=== PATIENT | male | born 1995 | race Two or more races ===

== ENCOUNTER → 2016-07-11 06:59 | Day surgery (SDC) | payer OTHER ==
[~2016-07-11 06:59] MED LIST: Atracurium* 10 MG/ML 10 ML VIAL ONE; Buffered Lidocaine 1% SYR 3ML* 3 ML/SYR SYRINGE INTRADERM ONE; Buffered Lidocaine 1% SYR 3ML* 3 ML/SYR SYRINGE ONE; Bupivacaine 0.25% EPI 200,000* 30 ML SDV ONE; Bupivacaine 0.25% SDV* 30 ML ONE; Dexamethasone IV* 4 MG/ML 1 ML (4 MG) IV SLOW PU ONE; Dexamethasone IV* 4 MG/ML 1 ML (4 MG) ONE; DiMENhydriNATE IV* 50 MG/ML VIAL IV PUSH PRN; Famotidine IV* 10 MG/ML 2 ML (20 mg) IV ONE; Famotidine IV* 10 MG/ML 2 ML (20 mg) ONE; Glycopyrrolate IV* 0.2 MG/ML 1 ML VIAL ONE; Ketorolac INJ* 30 MG/ML 1 ML VIAL ONE; Midazolam* 1 MG/ML 5 ML VIAL (5 MG) ONE; Ondansetron INJ* 2 MG/ML VIAL IV PRN; Ondansetron INJ* 2 MG/ML VIAL ONE; Propofol* 10 MG/ML 20 ML BTL IV PUSH ONE; ROPIVACAINE 5 MG/ML 30 ML BTL (0.5%) ONE; ceFAZolin 2 GM PREMIX (*) 2 GM/50 ML BAG IVPB ONE; fentaNYL* 50 MCG/ML 2 ML VIAL (100 MCG VIAL) IV PRN; fentaNYL* 50 MCG/ML 2 ML VIAL (100 MCG VIAL) ONE; oxyCODONE/Acetamin 5/325 MG* TAB PO PRN
[2016-07-11 11:12] VITALS: BP 134/83
--- NOTE | 2016-07-11 23:37 | OP ---
DATE OF OPERATION: 07/11/16 - [facility] DATE OF : [birth year] SURGEON: Ita Villanueva MD REVIVAL CLERK: SHIRLEY Fisher ANESTHESIOLOGIST: Yosef Simon MD ANESTHESIA: General interscalene block. 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 OPERATIVE PROCEDURE: 1. Left shoulder arthroscopy. 2. Extensive glenohumeral debridement including chondroplasty. 3. Removal of loose body x1, greater than 5 mm. 4. Bony Bankart repair. 5. Subpectoral biceps tenodesis. IMPLANTS USED: Four 2.9 mm Bioraptors and one Q-Fix anchor. COMPLICATIONS: None. ESTIMATED BLOOD LOSS: Minimal. INDICATIONS: Sukhjinder Gee is a 20-year-old male who has had a 1-xpsb-ihlshcy of recurrent dislocation of over 10 times dislocating. He had imaging that was consistent with a moderate sized bony Bankart piece that was displaced and healed improperly. He had persistent episodes of instability and had failed conservative management. The risks and benefits of surgery were discussed at length including, but not limited to failure of repair, need for further surgery , risk of arthritis and dislocation, stiffness, persistent pain, loss of motion , wound healing problems, risk of DVT, risk of anesthesia, failure of the hardware. He has elected to proceed with surgery. DESCRIPTION OF PROCEDURE: The patient was greeted in the preoperative area by the attending surgeon. Correct extremity was marked and consent was confirmed. The patient was then brought back to the operating suite, where he was placed in supine position on the operating table. He then underwent interscalene nerve block by the anesthesiologist, which he tolerated without difficulty. The patient was then placed in the right lateral decubitus position. Left arm was suspended with 10 pounds of traction. Unsterilely, he was secured with a PEG board. All bony prominences were padded. The shoulder was examined and he was found to have 3+ anterior glide and a positive sulcus sign. The left shoulder was then prepped and draped in usual sterile fashion, given chlorhexidine soap and alcohol wipe and a final prep with ChloraPrep. After appropriate surgical pause indicating side, site, procedure, and administration of antibiotics, a standard postero-lateral portal was made sharply with an 11 blade, the scope was then introduced to the joint. The joint was examined. There was high-grade injury to the biceps luciano. The superior labrum was torn. The biceps had mild fraying and was torn. The undersurface of the subscapularis was intact with mild irritation. The undersurface of the supraspinatus was intact. There was at least one loose body that was evident. The shoulder was completely dislocated with no excessive traction. Low anterior portal was then made with an 18- gauge for localization and eventually dilated up to an 8 mm cannula. Shaver was brought in to perform a small chondroplasty and remove the loose body. The biceps was taken through range of motion and found to be torn and inflamed and therefore, it was tenotomized. The stump was shaved back. The shoulder was examined. There was a large bony defect. The labrum bony Bankart piece had been subluxed medially and healed improperly. The second cannula was placed in the superior aspect of the interval. This was a 5 mm cannula for shuttling sutures. Next, attention was directed to preparing the labrum. The labral elevator was then used to elevate the scarred soft tissue off the bone and help to lift up the bony block. This helped to restore some of the normal anatomy. All the while, the certified surgical first assistant was holding the shoulder back so that the shoulder was no longer subluxed anteriorly. Once this had been released, the bony edges were then rasped carefully using a ball rasp and double -sided curved rasp and the shaver device to allow for good bony bleeding edge. Once this was completed, attention was directed to the anchor placement again. All debris was removed. Chondroplasty was done as indicated. The posterior labrum was identified and was hyperemic, but it was not frankly torn. Decision was made to not repair that. The inferior recess was intact. The remainder of the tissues around the shoulder was very hyperemic and inflamed. [place] placement began with the first anchor as low as possible to around the 5: 30, between the 5:30 and 6 o'clock position. This was well seated with good purchase. This was then passed inferior to the bone block as well as around the most inferior aspect of the bone block in a horizontal mattress configuration. This help to restore the beginning of the bony piece. A second anchor was placed around the 4:30 position. Similarly, it was passed under the bone block. This was somewhat difficult and laborious using the passers. Once this was passed in a horizontal mattress configuration, this was also tied down using arthroscopic knot time. This helped again to restore the glenoid surface as well as the normal anatomy. A third anchor was placed around the 3:30 position and a fourth of the 2:30 position to help repair what was remaining of the labrum and the bone block. Bone block piece was quite extensive. Final images were obtained. The shoulder was found to be reduced. There was a moderate sized Hill-Sachs deformity. Again, there were grade 2 changes to the humeral head, grade 1 to 2 changes in the glenoid, the unstable surfaces were debrided back using the shaver. All loose debris and fluids were removed from the joint. A 30 degree and 70 degree scope were used, interchangeably throughout the case to help with visualization. Once final images were obtained , attention was directed to the biceps. The bed was airplaned somewhat to the left side. ChloraPrep was used to reprep the anterior aspect of the shoulder. The 15 blade was then used to make an incision and soft tissue dissection was done with the Metzenbaum scissors until the inferior aspect of the pec was identified and the remainder of the dissection was done bluntly. A Jennifer was used to elevate the pec and the biceps groove was palpated. A small elizabeth in the fascia of the biceps groove was then made using the electrocautery device. The right angle was used to remove the biceps which was very hyperemic and inflamed. Images were taken. The biceps groove was then prepared using the electrocautery device, the ball rasp, and an osteotome to allow for bony bleeding edge. The Q-fix anchor was then drilled unicortically along the groove. The Q-fix anchor was deployed with excellent purchase. The sutures were then passed in a Terry-Gilles type configuration into the tendon approximately 1 cm proximal to the musculotendinous junction. The excess stump was then sharply removed and the biceps was shuttled back into the wound to the groove and secured with knot. This helped to restore the tension. The wound was copiously irrigated. The anterior wound was closed in layers with 2-0 Vicryl, 3-0 Monocryl. The portals were closed with 3-0 nylon. 20 cc of 0.25% Marcaine plain were injected in the anterior wound. Sterile dressings were applied, Cryo/Cuff as well as an UltraSling. He was awoken from Anesthesia, transferred to PACU in stable condition. POSTOPERATIVE PLAN: He will be discharged on pain medications, antibiotics. He will be in a sling for 6 weeks. He will be allowed to work on elbow, wrist, and hand range of motion as well as pendulum exercises. DVT prophylaxis was considered, but deferred due to no previous, personal, or family history. I will see the patient back in 10 to 14 days. [id number]/CPS #: [id number] MTDD
== END | disposition home or self-care (01) ==
LOC: OREAST 06:59
PROVIDERS: ATTEND Orthopaedic Surgery
DX: M24.412 Recurrent dislocation, left shoulder (principal); M24.012 Loose body in left shoulder; Z87.891 Personal history of nicotine dependence
CPT/HCPCS: 88304; C1776; J0690; J1100; J1885; J2250; J2405; J2704; J2795; J3010